=== PATIENT | female | born 1955 | race Caucasian/White ===

== ENCOUNTER 2025-03-15 12:38 | Outpatient (CLI) | payer MEDICARE ==
[~2025-03-15] VITALS: Ht 162.6 cm; Wt 86.2 kg
[2025-03-15 14:16] VITALS: PULSE 85; RESP 20; O2SAT 92
[2025-03-15] MEDS: albuterol 2.5 MG/3 ML nebule NEB ONE (14:24)
[2025-03-15 15:00] VITALS: PULSE 103; RESP 18
== END 2025-03-15 23:59 | disposition home or self-care (01) ==
LOC: RT 12:38
PROVIDERS: ATTEND Family Medicine
DX: J44.9 Chronic obstructive pulmonary disease, unspecified (principal)
CPT/HCPCS: 94060; 94727; 94729; 94760